=== PATIENT | male | born 1930 | race African-American/Black ===

== ENCOUNTER 2020-02-11 15:51 | Emergency (ER) | payer OTHER ==
[~2020-02-11] VITALS: Ht 188 cm; Wt 65.0 kg
[2020-02-11] MEDS ORDERED: KETOROLAC 60MG/2ML VIAL IM ONE (17:00)
[2020-02-11 18:06] VITALS: BP 120/65
== END 2020-02-11 20:05 | disposition home or self-care (01) ==
LOC: ER 15:51
DX: M25.561 Pain in right knee (principal); M79.671 Pain in right foot; I11.9 Hypertensive heart disease without heart failure; Y04.2XXA Assault by strike against or bumped into by another person, initial encounter; Y93.89 Activity, other specified; Y92.811 Bus as the place of occurrence of the external cause
CPT/HCPCS: 73560; 73630; 96372; 99284; J1885